=== PATIENT | female | born 1960 | race Caucasian/White ===

== ENCOUNTER 2018-04-05 14:19 | Inpatient (IN) | payer MEDICAID ==
[~2018-04-05] VITALS: Ht 157.5 cm; Wt 103.9 kg
[2018-04-05 14:34] VITALS: BP 129/86
[2018-04-05] MEDS ORDERED: NACL 0.9% 1,000 ML IV SCH (15:07)
[2018-04-05] MEDS ORDERED: KETOROLAC 30 MG/ML VIAL IVP ONE (15:10)
[2018-04-05 16:04] LABS: BASOPHILS % (AUTO) 0.3 % (0.0-2.0); EOSINOPHILS # (AUTO) 0.1 K/uL (0-0.4); EOSINOPHILS % (AUTO) 1.6 % (0.0-4.0); HEMATOCRIT 43.1 % (36-48); LYMPHOCYTES % (AUTO) 42.7 % (20.5-51.1); MEAN CORPUSCULAR HEMOGLOBIN 28 pg (27-31); MEAN CORPUSCULAR HGB CONC 32 g/dL (33-37); MEAN CORPUSCULAR VOLUME 85.3 fL (80-94); MONOCYTES # (AUTO) 0.7 K/uL (0.8-1.0); MONOCYTES % (AUTO) 9.2 % (1.7-9.3); NEUTROPHILS # (AUTO) 3.3 K/uL (1.8-7.7); NEUTROPHILS % (AUTO) 46.2 % (42.2-75.2); PLATELET COUNT (AUTO) 319 K/uL (140-450); RED BLOOD CELL COUNT(AUTO) 5.06 MIL/uL (4.20-5.40); RED CELL DISTRIBUTION WIDTH 15.1 % (11.6-13.7); WHITE BLOOD COUNT (AUTO) 7.1 K/uL (4.8-10.8)
[2018-04-05 16:18] LABS: ANION GAP 10.1 (8-16); CARBON DIOXIDE 30.4 mmol/L (21-32); CREATININE 0.6 mg/dL (0.6-1.3); POTASSIUM 3.5 mmol/L (3.5-5.1)
[2018-04-05 16:19] LABS: APPEARANCE,URINE CLEAR (CLEAR); BILIRUBIN,URINE NEGATIVE (NEGATIVE); BLOOD, URINE NEGATIVE (NEGATIVE); COLOR,URINE YELLOW (YELLOW); LEUKOCYTE ESTERASE ,URINE NEGATIVE (NEGATIVE); NITRITE, URINE NEGATIVE (NEGATIVE); UGLUCOSE NEGATIVE (NEGATIVE)
[2018-04-05 16:21] LABS: PROTHROMBIN TIME 9.6 secs (10.8-13.4)
[2018-04-05] MEDS ORDERED: NACL 0.9% 1,000 ML IV ONE (17:15)
[2018-04-05] MEDS: NACL 0.9% 1,000 ML IV SCH (18:19)
[2018-04-05] MEDS ORDERED: ZOLPIDEM 5 MG TAB PO PRN (18:20)
[2018-04-05] MEDS ORDERED: ACETAMINOPHEN 325 MG TAB PO PRN (18:20)
[2018-04-05] MEDS ORDERED: ONDANSETRON 4 MG/2 ML VIAL IVP PRN (18:20)
[2018-04-05 19:00] VITALS: BP 164/96
[2018-04-05] MEDS ORDERED: GLU500 PO (19:46)
[2018-04-05 20:00] VITALS: BP 116/64
[2018-04-05] MEDS: DOCUSATE SODIUM 100 MG GELCAP PO SCH (20:26)
[2018-04-05] MEDS ORDERED: HYDROcodone/APAP 5/325 MG 1 TAB TAB PO PRN (20:30)
[2018-04-05 21:32] LABS: BARBITURATE, URINE NEG. ng/ml (NEG <=200); BENZODIAZEPINE, URINE NEG. ng/mL (NEG <=200); CANNABINOID, URINE NEG. ng/mL (NEG <=50); COCAINE, URINE NEG. ng/mL (NEG <=300); OPIATE, URINE NEG. ng/mL (NEG <=2000); PHENCYCLIDINE SCREEN,URINE NEG. ng/mL (NEG <=25)
[2018-04-05 22:12] LABS: FREE T4 (FREE THYROXINE) 0.89 ng/dL (0.76-1.46); MAGNESIUM 1.8 mg/dL (1.8-2.4); PHOSPHORUS 3.1 mg/dL (2.5-4.9); THYROID STIMULATING HORMONE 2.43 uIU/mL (0.34-3.74)
[2018-04-06 06:00] VITALS: BP 116/64
[2018-04-06 06:39] LABS: BASOPHILS % (AUTO) 0.5 % (0.0-2.0); EOSINOPHILS # (AUTO) 0.2 K/uL (0-0.4); EOSINOPHILS % (AUTO) 2.5 % (0.0-4.0); HEMATOCRIT 41.4 % (36-48); HEMOGLOBIN 13.3 g/dL (12.0-16.0); LYMPHOCYTES # (AUTO) 3.3 K/uL (2.5-16.5); LYMPHOCYTES % (AUTO) 39.7 % (20.5-51.1); MEAN CORPUSCULAR HEMOGLOBIN 28 pg (27-31); MEAN CORPUSCULAR HGB CONC 32 g/dL (33-37); MEAN CORPUSCULAR VOLUME 85.6 fL (80-94); MONOCYTES # (AUTO) 0.7 K/uL (0.8-1.0); MONOCYTES % (AUTO) 8.2 % (1.7-9.3); NEUTROPHILS % (AUTO) 49.1 % (42.2-75.2); PLATELET COUNT (AUTO) 264 K/uL (140-450); RED BLOOD CELL COUNT(AUTO) 4.84 MIL/uL (4.20-5.40); RED CELL DISTRIBUTION WIDTH 14.7 % (11.6-13.7); WHITE BLOOD COUNT (AUTO) 8.2 K/uL (4.8-10.8)
[2018-04-06 07:23] LABS: CARBON DIOXIDE 28.9 mmol/L (21-32); CREATININE 0.6 mg/dL (0.6-1.3); POTASSIUM 3.9 mmol/L (3.5-5.1)
[2018-04-06 07:44] LABS: MAGNESIUM 1.8 mg/dL (1.8-2.4)
[2018-04-06 08:00] VITALS: BP 132/74
[2018-04-06] MEDS ORDERED: LISINOPRIL 10 MG TAB PO SCH (09:00)
[2018-04-06] MEDS: NACL 0.9% 1,000 ML IV SCH ×2 (09:35→17:07)
[2018-04-06] MEDS: METOPROLOL SUCCINATE 50 MG TABER PO SCH (09:36)
[2018-04-06] MEDS: IBUPROFEN 800 MG TAB PO PRN ×2 (09:36→18:06)
[2018-04-06] MEDS: CYCLOBENZAPRINE 10 MG TAB PO SCH ×3 (09:36→17:04)
[2018-04-06] MEDS: DOCUSATE SODIUM 100 MG GELCAP PO SCH ×2 (09:36→20:59)
[2018-04-06] MEDS ORDERED: ATOR40TA PO (11:40)
[2018-04-06] MEDS ORDERED: RANI150C PO (11:40)
[2018-04-06] MEDS ORDERED: BENA1TAB PO (11:40)
[2018-04-06] MEDS ORDERED: VITD1000 PO (11:40)
[2018-04-06] MEDS ORDERED: NAPR-1560 PO (11:40)
[2018-04-06] MEDS ORDERED: METO50TE2 PO (11:44)
[2018-04-06 16:00] VITALS: BP 127/63
[2018-04-06] MEDS: metFORMIN 500 MG TAB PO SCH (17:03)
[2018-04-06 18:04] LABS: CHOL/HDL RATIO 2.8 (1-4.5)
[2018-04-06 20:00] VITALS: BP 116/64
[2018-04-07] MEDS: NACL 0.9% 1,000 ML IV SCH (02:45)
[2018-04-07 08:00] VITALS: BP 109/56
[2018-04-07] MEDS ORDERED: IBUP-2213 PO (08:53)
[2018-04-07] MEDS ORDERED: HYDROCHLOROTHIAZIDE 25 MG TAB PO SCH (09:00)
[2018-04-07] MEDS ORDERED: ATORVASTATIN 20 MG TAB PO SCH (09:00)
[2018-04-07] MEDS ORDERED: BENAZEPRIL 20 MG TAB PO SCH (09:00)
[2018-04-07] MEDS: METOPROLOL SUCCINATE 50 MG TABER PO SCH (09:00)
[2018-04-07] MEDS ORDERED: CYCL10TA14 PO (09:06)
[2018-04-07] MEDS: metFORMIN 500 MG TAB PO SCH (09:14)
[2018-04-07] MEDS: IBUPROFEN 800 MG TAB PO PRN (09:14)
[2018-04-07] MEDS: DOCUSATE SODIUM 100 MG GELCAP PO SCH (09:15)
[2018-04-07] MEDS: CYCLOBENZAPRINE 10 MG TAB PO SCH (09:15)
== END 2018-04-07 13:50 | disposition home health service (06) | DRG 351 ==
LOC: MED 14:19 → MTU 18:19
PROVIDERS: ADMIT General Practice; ATTEND General Practice
DX: M75.102 Unspecified rotator cuff tear or rupture of left shoulder, not specified as traumatic (principal); E87.2 Acidosis; I10 Essential (primary) hypertension; E78.5 Hyperlipidemia, unspecified; E11.9 Type 2 diabetes mellitus without complications; J45.909 Unspecified asthma, uncomplicated; I83.90 Asymptomatic varicose veins of unspecified lower extremity; F43.9 Reaction to severe stress, unspecified; E86.0 Dehydration; M35.3 Polymyalgia rheumatica; Z90.49 Acquired absence of other specified parts of digestive tract; Z90.710 Acquired absence of both cervix and uterus; Z79.84 Long term (current) use of oral hypoglycemic drugs
CPT/HCPCS: 36415; 71045; 73030; 80048; 80053; 80305; 81003; 82150; 82550; 82553; 83036; 83605; 83690; 83735; 83880; 84100; 84439; 84443; 84484; 85025; 85610; 85730; 87081; 87086; 93005; 93925; 93970; 96361; 96374; 97161-GP; 99285; J1885; J7030; Q0092